=== PATIENT | female | born 1990 | race Caucasian/White ===

== ENCOUNTER 2017-10-23 15:18 | Emergency (ER) | payer OTHER ==
[2017-10-23 15:40] LABS: URINE APPEARANCE SL CLOUDY; URINE BILIRUBIN SMALL (NEGATIVE); URINE BLOOD LARGE (NEGATIVE); URINE COLOR YELLOW; URINE KETONE TRACE (NEGATIVE); URINE NITRITE NEGATIVE (NEGATIVE)
[2017-10-23 15:43] LABS: URINE LEUKOCYTE ESTERASE TRACE (NEGATIVE)
[2017-10-23 15:44] LABS: URINE WBC 0 - 2 (0-2/hpf)
[2017-10-23 15:50] LABS: BASO % 0.2 % (0-6); EOS % 0.3 % (0-6); GRAN % 76.5 % (47-80); HEMATOCRIT 40.3 % (35.0-47.0); HEMOGLOBIN 12.9 gm/dl (11.6-16.0); LYMPH % 14.2 % (16-45); MEAN CELL VOLUME 89.2 fl (81-97); MEAN CORPUSCULAR HEMOGLOBIN 28.5 pg (27-33); MONO % 8.8 % (0-9); PLATELET COUNT 415 K/uL (130-400); RED BLOOD COUNT 4.52 M/uL (3.80-5.40); RED CELL DISTRIBUTION WIDTH 13.3 % (11.5-14.5); WHITE BLOOD COUNT W/O DIFF 10.2 K/uL (4.2-12.2)
[2017-10-23] MEDS: 0.9 % SODIUM CHLORIDE 1,000 ML BAG IV ONE (15:52)
[2017-10-23] MEDS: ONDANSETRON HCL IV 4 MG/2 ML VIAL IVP ONE (15:52)
[2017-10-23] MEDS: MORPHINE SULFATE 10 MG/ML VIAL IVP ONE (15:52)
[2017-10-23 15:58] LABS: BLOOD UREA NITROGEN 14 mg/dL (6-20); CREATININE 0.8 mg/dL (0.5-0.9); EST GLOMERULAR FILTRATION RATE > 60 mL/min
[2017-10-23 16:01] LABS: GLUCOSE,RANDOM 96 mg/dL (74-109)
--- NOTE | 2017-10-23 16:24 | Emergency Department Record ---
History of Present Illness - General Chief complaint: Flank Pain Stated complaint: KIDNEY STONE Time Seen by Provider: 10/23/17 15:36 Source: Patient Mode of Arrival: Ambulatory Limitations: No limitations - History of Present Illness Initial comments: pt has l flank pain that feels like previous kidney stones. pt is 2 mos . Onset/Timin -: Hour(s) Location: Other Radiation: L flank Severity scale (1-10): 6 Quality: Sharp Consistency: Constant Improves with: None Worsens with: None Patient : No Associated Symptoms: Nausea/vomiting, Other - Related Data Previous Rx's Medication Instructions Recorded Hydrocodone/Acetaminophen [[place] 1 tab PO Q6H PRN #14 tab 03/13/16 5mg/325mg] Allergies Allergy/AdvReac Type Severity Reaction Status Date / Time No Known Drug Allergies Allergy Verified 10/23/17 15:31 Travel Screening - Travel/Exposure Within Last 30 Days Have you traveled within the last 30 days?: No - Travel/Exposure Within Last Year Have you traveled outside the [place] in the last year?: No - Additonal Travel Details Have you been exposed to anyone with a communicable illness?: No - Travel Symptoms Symptom Screening: None Review of Systems Reviewed: No additional complaints except as noted below Constitutional: Reports: As per HPI. Denies: Chills, Fever, Malaise, Night sweats, Weakness, Weight change Eyes: Reports: As per HPI. Denies: Eye discharge, Eye pain, Photophobia, Vision change ENT: Reports: As per HPI. Denies: Congestion, Dental pain, Ear pain, Epistaxis , Hearing loss, Throat pain Respiratory: Reports: As per HPI. Denies: Cough, Dyspnea, Hemoptysis, Stridor, Wheezes Cardiovascular: Reports: As per HPI. Denies: Arrhythmia, Chest pain, Dyspnea on exertion, Edema, Murmurs, Orthopnea, Palpitations, Paroxysmal nocturnal dyspnea, Rheumatic Fever, Syncope Endocrine: Reports: As per HPI. Denies: Fatigue, Heat or cold intolerance, Polydipsia, Polyuria Gastrointestinal: Reports: As per HPI, Nausea, Vomiting. Denies: Abdominal pain , Constipation, Diarrhea, Hematemesis, Hematochezia, Melena Genitourinary: Reports: As per HPI. Denies: Abnormal menses, Discharge, Dyspareunia, Dysuria, Frequency, Hematuria, Incontinence, Retention, Urgency Musculoskeletal: Reports: As per HPI. Denies: Arthralgia, Back pain, Gout, Joint swelling, Myalgia, Neck pain Skin: Reports: As per HPI. Denies: Bruising, Change in color, Change in hair/ nails, Lesions, Pruritus, Rash Neurological: Reports: As per HPI. Denies: Abnormal gait, Confusion, Headache, Numbness, Paresthesias, Seizure, Tingling, Tremors, Vertigo, Weakness Psychiatric: Reports: As per HPI. Denies: Anxiety, Auditory hallucinations, Depression, Homicidal thoughts, Suicidal thoughts, Visual hallucinations Hematological/Lymphatic: Reports: As per HPI. Denies: Anemia, Blood Clots, Easy bleeding, Easy bruising, Swollen glands Past Medical History - SOCIAL HISTORY Smoking Status: Never smoker Alcohol Use: None Drug Use: None - RESPIRATORY Hx Respiratory Disorders: No - CARDIOVASCULAR Hx Cardio Disorders: No - NEURO Hx Neuro Disorders: No - GI Hx GI Disorders: No - Hx Genitourinary Disorders: Yes Hx Kidney Stones: Yes - ENDOCRINE Hx Endocrine Disorders: No - MUSCULOSKELETAL Hx Musculoskeletal Disorders: No - PSYCH Hx Psych Problems: No - HEMATOLOGY/ONCOLOGY Hx Hematology/Oncology Disorders: No Family Medical History Any Significant Family History?: No Hx Heart Disease: Grandparents Hx Kidney Disease: Father Physical Exam - General General Appearance: Alert, Oriented x3, Cooperative, Mild distress - Head Head exam: Normal inspection - Eye Eye exam: Normal appearance, PERRL, EOMI Pupils: Normal accommodation - ENT ENT exam: Normal exam, Mucous membranes moist, Normal external ear exam, Normal orophraynx Ear exam: Normal external inspection. negative: External canal tenderness Nasal Exam: Normal inspection. negative: Discharge, Sinus tenderness Mouth exam: Normal external inspection, Tongue normal Teeth exam: Normal inspection. negative: Dental caries Throat exam: Normal inspection. negative: Tonsillar erythema, Tonsillar exudate - Neck Neck exam: Normal inspection, Full ROM. negative: Tenderness - Respiratory Respiratory exam: Normal lung sounds bilaterally. negative: Respiratory distress - Cardiovascular Cardiovascular Exam: Regular rate, Normal rhythm, Normal heart sounds - GI/Abdominal GI/Abdominal exam: Soft, Normal bowel sounds. negative: Tenderness - Rectal Rectal exam: Deferred - exam: Deferred - Extremities Extremities exam: Normal inspection, Full ROM, Normal capillary refill. negative: Tenderness - Back Back exam: Reports: Normal inspection, CVA tenderness (L), Full ROM. Denies: Muscle spasm, Rash noted, Tenderness - Neurological Neurological exam: Alert, CN II-XII intact, Normal gait, Oriented X3 - Psychiatric Psychiatric exam: Normal affect, Normal mood - Skin Skin exam: Dry, Intact, Normal color, Warm Course Vital Signs 10/23/17 15:20 Temperature 98.0 F Pulse Rate 81 Respiratory 16 Rate Blood Pressure 124/79 Pulse Ox 99 - Reevaluation(s) Reevaluation #1: 10/23/17 17:24 pt feels better. pt has pain meds at home Medical Decision Making - Lab Data Result diagrams: 10/23/17 15:42 10/23/17 15:42 Lab Results 10/23/17 10/23/17 10/23/17 Range/Units 15:30 15:30 15:42 WBC 10.2 (4.2-12.2) K/uL RBC 4.52 (3.80-5.40) M/uL Hgb 12.9 (11.6-16.0) gm/dl Hct 40.3 (35.0-47.0) % MCV 89.2 (81-97) fl MCH 28.5 (27-33) pg MCHC 32.0 (32-36) g/dl RDW 13.3 (11.5-14.5) % Plt Count 415 H (130-400) K/uL MPV 10.0 (7.4-10.4) fl Gran % 76.5 (47-80) % Lymphocytes % 14.2 L (16-45) % Monocytes % 8.8 (0-9) % Eosinophils % 0.3 (0-6) % Basophils % 0.2 (0-6) % Sodium (136-145) mmol/L Potassium (3.4-4.5) mmol/L Chloride (98-107) mmol/L Carbon Dioxide (22-29) mmol/L Anion Gap (7-16) BUN (6-20) mg/dL Creatinine (0.5-0.9) mg/dL Estimated GFR mL/min Random Glucose (74-109) mg/dL Calcium (8.6-10.0) mg/dL Urine Color Yellow Urine Appearance Sl cloudy Urine pH 6.0 (5.0-8.0) Ur Specific [place] 1.025 (1.002-1.030) Urine Protein 100 mg/dl H (NEGATIVE) Urine Glucose (UA) 100 mg/dl H (NEGATIVE) Urine Ketones Trace H (NEGATIVE) Urine Blood Large H (NEGATIVE) Urine Nitrite Negative (NEGATIVE) Urine Bilirubin Small H (NEGATIVE) Urine Urobilinogen 2.0 H (0.20 - 1.00) E.U./dL Ur Leukocyte Esterase Trace H (NEGATIVE) Urine RBC Too numerous to cnt (NONE SEEN) Urine WBC 0 - 2 (0-2/hpf) Ur Epithelial Cells 3 - 6 (FEW) Urine HCG, Qual Negative (NEGATIVE) 10/23/17 Range/Units 15:42 WBC (4.2-12.2) K/uL RBC (3.80-5.40) M/uL Hgb (11.6-16.0) gm/dl Hct (35.0-47.0) % MCV (81-97) fl MCH (27-33) pg MCHC (32-36) g/dl RDW (11.5-14.5) % Plt Count (130-400) K/uL MPV (7.4-10.4) fl Gran % (47-80) % Lymphocytes % (16-45) % Monocytes % (0-9) % Eosinophils % (0-6) % Basophils % (0-6) % Sodium 139 (136-145) mmol/L Potassium 3.8 (3.4-4.5) mmol/L Chloride 99 (98-107) mmol/L Carbon Dioxide 28.0 (22-29) mmol/L Anion Gap 12.0 (7-16) BUN 14 (6-20) mg/dL Creatinine 0.8 (0.5-0.9) mg/dL Estimated GFR > 60 mL/min Random Glucose 96 (74-109) mg/dL Calcium 9.1 (8.6-10.0) mg/dL Urine Color Urine Appearance Urine pH (5.0-8.0) Ur Specific [place] (1.002-1.030) Urine Protein (NEGATIVE) Urine Glucose (UA) (NEGATIVE) Urine Ketones (NEGATIVE) Urine Blood (NEGATIVE) Urine Nitrite (NEGATIVE) Urine Bilirubin (NEGATIVE) Urine Urobilinogen (0.20 - 1.00) E.U./dL Ur Leukocyte Esterase (NEGATIVE) Urine RBC (NONE SEEN) Urine WBC (0-2/hpf) Ur Epithelial Cells (FEW) Urine HCG, Qual (NEGATIVE) Disposition Disposition: Discharge Clinical Impression: Renal lithiasis Hematuria Qualifiers: Hematuria type: unspecified type Qualified Code(s): R31.9 - Hematuria, unspecified Disposition: Home, Self-Care Condition: (1) Good Instructions: Flank Pain (ED), Kidney Stones (ED), Renal Colic (ED) Additional Instructions: follow up with urologist estefani. return sooner if worse. push fluids. Forms: Patient Portal Access Quality - Quality Measures Quality Measures: N/A - Blood Pressure Screening Does Patient Have Any of the Following: No Blood Pressure Classification: Pre-Hypertensive BP Reading Systolic Measurement: 124 Diastolic Measurement: 79 Screening for High Blood Pressure: < Pre-Hypertensive BP, F/U Documented > [ [id number]] Pre-Hypertensive Follow-up Interventions: Follow-up with rescreen every year.
--- NOTE | 2017-10-25 14:51 | CT SCAN REPORT ---
EXAM: CT OF THE ABDOMEN AND PELVIS HISTORY: LEFT FLANK PAIN. TECHNIQUE: CT of the abdomen and pelvis was performed without intravenous or oral contrast. Comparison: CT of the abdomen and pelvis 03/13/16. FINDINGS: The lung bases are unremarkable. There is a 3 mm calcification in the left upper abdomen either within or in close proximity to the proximal left ureter. This is in the same location as the 2.8 mm calcification seen on the previous study. While this could represent a proximal left ureteral calculus there is no definite hydronephrosis. A phlebolith cannot be excluded. No other renal or ureteral calculi suspected. The unenhanced liver and spleen are unremarkable. No pancreatic mass or inflammatory change. There are no calcified gallstones. No adrenal lesion identified. No aortic aneurysm. No periaortic mass or adenopathy identified. There are no dilated bowel loops. The appendix is unremarkable. No pelvic mass , abscess or adenopathy. No free air or free fluid identified. IMPRESSION: 1. 3 MM CALCIFICATION IS SEEN WITHIN OR IMMEDIATELY ADJACENT TO THE PROXIMAL LEFT URETER. IT IS UNCERTAIN IF THIS IS A PROXIMAL LEFT URETERAL CALCULUS OR A PHLEBOLITH. CT UROGRAPHY COULD BE PERFORMED FOR FURTHER ASSESSMENT. THERE ARE NO OTHER RENAL OR URETERAL CALCULI. 2. CT ABDOMEN AND PELVIS OTHERWISE UNREMARKABLE. JOB NUMBER: [id number] [facility]
== END 2017-10-23 17:32 | disposition home or self-care (01) ==
LOC: ER 15:18
DX: N20.0 Calculus of kidney (principal)
CPT/HCPCS: 99283 ×2; 96374; 96375; 85025; 80048; 81001; 81025; 74176; J2405; J2270; J7030